=== PATIENT | female | born 1970 | race Hispanic/Latino ===

== ENCOUNTER 2024-06-05 10:31 | Emergency (ER) | payer OTHER ==
[~2024-06-05] VITALS: Ht 167.6 cm; Wt 60.3 kg
[2024-06-05 10:31] VITALS: TEMP 98.4
[2024-06-05] MEDS ORDERED: SODIUM CHLORIDE FLUSH 10 ML SYR IV PRN (11:00)
[2024-06-05 11:34] LABS: CORONAVIRUS COVID-19 AG NEGATIVE (NEGATIVE); INFLUENZA A AG NEGATIVE (NEGATIVE); INFLUENZA B AG NEGATIVE (NEGATIVE)
[2024-06-05] MEDS: KETOROLAC TROMETHAMINE 30 MG/ML VIAL IV STA (12:15)
[2024-06-05] MEDS: BENZONATATE 100 MG CAP PO STA (12:15)
[2024-06-05] MEDS: SODIUM CHLORIDE 0.9% 1000ML 1,000 ML IV ONE (12:15)
[2024-06-05 12:55] LABS: BASOPHILS % 0.1 % (0.0-1.0); HEMATOCRIT 32.7 % (34.2-44.1); HEMOGLOBIN 10.6 g/dL (12.0-16.0); LYMPHOCYTES # (AUTO) 2.2 (1.0-3.2); LYMPHOCYTES % 15.8 % (18.0-39.1); MEAN CORPUSCULAR HEMOGLOBIN 28.5 pg (28-32); MEAN CORPUSCULAR HGB CONC 32.4 g/dL (31-35); MEAN CORPUSCULAR VOLUME 87.9 fL (81-99); MONOCYTES # (AUTO) 1.5 (0.2-0.8); MONOCYTES % 10.4 % (4.4-11.3); NEUTROPHILS # (AUTO) 10.3 (2.1-6.9); NEUTROPHILS % 73.2 % (38.7-80.0); PLATELET COUNT 253 x10e3/uL (140-360); RED BLOOD COUNT 3.72 x10e6/uL (3.6-5.1); RED CELL DISTRIBUTION WIDTH 17.3 % (11.7-14.4); WHITE BLOOD COUNT 14.04 x10e3/uL (4.8-10.8)
[2024-06-05 13:02] VITALS: PULSE 79; RESP 20
[2024-06-05 13:14] LABS: ALBUMIN 3.5 g/dL (3.5-5.0); ALBUMIN/GLOBULIN RATIO 0.9 (0.8-2.0); ANION GAP 15.7 mmol/L (8-16); BILIRUBIN,TOTAL 0.7 mg/dL (0.2-1.2); CALCIUM 9.5 mg/dL (8.4-10.2); CREATININE, SERUM 0.78 mg/dL (0.57-1.11); POTASSIUM 3.7 mmol/L (3.5-5.1); TOTAL PROTEIN 7.3 g/dL (6.5-8.1)
[2024-06-05 13:19] LABS: TROPONIN I 0.01 ng/mL (0-0.300)
[2024-06-05] MEDS ORDERED: LEVOFLOXACIN750 MG PO (14:39)
[2024-06-05] MEDS ORDERED: BENZONATATE100 MG PO (14:39)
[2024-06-05 14:45] VITALS: BP 106/50
[2024-06-05 14:46] VITALS: PULSE 77; RESP 22; TEMP 98.6; O2SAT 96
== END 2024-06-05 15:00 | disposition home or self-care (01) ==
LOC: ER 10:46
DX: R05.9 Cough, unspecified (principal); J18.9 Pneumonia, unspecified organism; R53.81 Other malaise; Z11.52 Encounter for screening for COVID-19
CPT/HCPCS: 36415; 71046; 80053; 84484; 85025; 85379; 87428; 93005; 94760; 99284; J1885; J7030